=== PATIENT | female | born 1950 ===

== ENCOUNTER 2020-12-26 22:59 | Emergency (ER) | payer MEDICARE ==
[2020-12-26 23:15] VITALS: PULSE 76
[2020-12-26] MEDS ORDERED: Diphtheria,Pertussis(Acell),Tetanus Vaccine 0.5 ML Syringe IM ONE (23:34)
--- NOTE | 2020-12-27 00:19 | EDM.PDOC ---
ED HPI GENERAL MEDICAL PROBLEM - General Chief Complaint: Head Injury Stated Complaint: FALL Time Seen by Provider: 12/26/20 23:05 Source of Information: Reports: Patient History Limitations: Reports: No Limitations - History of Present Illness INITIAL COMMENTS - FREE TEXT/NARRATIVE: Patient presented to the ED because of facial injury. She went to throw her trash tonight lost her balance and fell face down. She sustained abrasions on her left forehead,cheeks-bilateral and has a left sided epistaxis. There is no headache, N/V and no LOC after the fall. Face, bilat wrists Pain Score (Numeric/FACES): 6 - Related Data Allergies Allergy/AdvReac Type Severity Reaction Status Date / Time .excedrin Allergy Other Uncoded 12/26/20 23:06 .pain medication Allergy Stomach Uncoded 12/26/20 23:06 Upset Home Meds: Home Meds Losartan/Hydrochlorothiazide [Losartan-HCTZ 100-25 MG] 1 each PO DAILY 03/06/15 [History] Metoprolol Succinate [Toprol XL] 100 mg PO DAILY 03/06/15 [History] Citalopram [Citalopram HBr] 10 mg PO BEDTIME 12/26/20 [History] Omeprazole 20 mg PO DAILY 12/26/20 [History] Rosuvastatin [Crestor] 5 mg PO BEDTIME 12/26/20 [History] Zolpidem Tartrate [Ambien] 5 mg PO BEDTIME PRN 12/26/20 [History] amLODIPine [Norvasc] 5 mg PO DAILY 12/26/20 [History] Past Medical History HEENT History: Reports: Cataract, Other (See Below) Other HEENT History: hx tinnitis, hx Meniers disease Cardiovascular History: Reports: High Cholesterol, Hypertension Gastrointestinal History: Reports: GERD Genitourinary History: Reports: UTI, Recurrent 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: Musculoskeletal History: Reports: Arthritis, Fracture Other Musculoskeletal History: hx finger L hand Neurological History: Reports: Vertigo Psychiatric History: Reports: Anxiety, Depression Endocrine/Metabolic History: Reports: Other (See Below) Other Endocrine/Metabolic History: pre-diabetes - Infectious Disease History Infectious Disease History: Reports: Chicken Pox, Measles, Mumps - Past Surgical History HEENT Surgical History: Reports: Adenoidectomy, Tonsillectomy GI Surgical History: Reports: Appendectomy, Cholecystectomy Musculoskeletal Surgical History: Reports: None Social & Family History - Family History Family Medical History: No Pertinent Family History - Tobacco Use Tobacco Use Status *Q: Former Tobacco User Years of Tobacco use: 15 Used Tobacco, but Quit: Yes Month/Year Tobacco Last Used: jul - Caffeine Use Caffeine Use: Reports: Coffee - Recreational Drug Use Recreational Drug Use: No ED ROS GENERAL - Review of Systems Review Of Systems: See Below HEENT: Reports: No Symptoms Respiratory: Reports: No Symptoms Cardiovascular: Reports: No Symptoms Endocrine: Reports: No Symptoms GI/Abdominal: Reports: No Symptoms : Reports: No Symptoms Musculoskeletal: Reports: No Symptoms Skin: Reports: No Symptoms Neurological: Reports: No Symptoms ED EXAM, HEAD INJURY - Physical Exam Exam: See Below Exam Limited By: No Limitations General Appearance: Alert, No Apparent Distress Head: Atraumatic, Normocephalic Ears: Normal External Exam, Normal Canal, Hearing Grossly Normal, Normal TMs, Hearing Loss Nose: Normal Inspection, Normal Mucousa, No Blood, Other (epistaxis-left nose) Throat/Mouth: Normal Inspection, Normal Lips, Normal Teeth, Normal Gums Neck: Non-Tender, Full Range of Motion, Normal Alignment Respiratory: No Respiratory Distress, Lungs Clear, Normal Breath Sounds, No Accessory Muscle Use, Chest Non-Tender Cardiovascular: Normal Peripheral Pulses, Regular Rate, Rhythm, No Edema GI/Abdominal Exam: Normal Bowel Sounds, Soft, Non-Tender, No Organomegaly Back Exam: Normal Inspection, Full Range of Motion Extremities: Normal Inspection, Normal Range of Motion, Non-Tender 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 As Tested, No Motor/Sensory Deficits, Alert, Normal Mood/Affect, Oriented x 3 Skin: Normal Color, Other (facial abrasions) Course - Vital Signs Text/Narrative:: Tdap Facial CT-negative except for nasal fracture Last Recorded V/S: Last Vital Signs Temp 36.5 C 12/26/20 22:59 Pulse 76 12/27/20 01:00 Resp 18 12/27/20 01:00 BP 130/74 12/27/20 01:00 Pulse Ox 96 12/27/20 01:00 - Orders/Labs/Meds Orders: Active Orders 24 hr Category Date Time Status Max Facial Sinus wo Cont [CT] Stat Exams 12/26/20 23:32 Taken Meds: Medications Discontinued Medications Generic Name Dose Route Start Last Admin Trade Name Yony PRN Reason Stop Dose Admin Acetaminophen 1,000 mg 12/27/20 00:55 12/27/20 01:05 Acetaminophen 500 Mg Tab PO 12/27/20 00:56 1,000 mg NOW STA Administration Diphtheria/Tetanus/Acell Pertussis 0.5 ml 12/26/20 23:34 12/27/20 01:04 Diphtheria,Pertussis(Acell),Tetanus Vaccine 0.5 Ml Syringe IM 12/26/20 23:35 0.5 ml .ONCE ONE Administration Departure - Departure Time of Disposition: 01:10 Disposition: Home, Self-Care 01 Condition: Good Clinical Impression: Nasal bone fracture - Discharge Information Instructions: Nasal Fracture, [id number], Facial or Scalp Contusion, [id number], Abrasion, [id number], VIS, Tetanus, Diphtheria, and Pertussis (Tdap) - [facility]– [place] (10/06/2019) Referrals: Alaina Garcia [employer] [Primary Care Provider] - Forms: ED Department Discharge Additional Instructions: Please read discharge instructions on facial injury and nasal fracture Take ibuprofen 600 mg with tylenol 500 mg every 4-6 hours as needed for pain Apply and antibiotic ointment on your abrasion twice daily for 1 week Follow up with ENT in a week Sepsis Event Note (ED) - Evaluation Sepsis Screening Result: No Definite Risk - Focused Exam Vital Signs: Vital Signs Pulse Resp BP Pulse Ox 12/27/20 01:00 76 18 130/74 96 - My Orders Last 24 Hours: My Active Orders 12/26/20 23:32 Max Facial Sinus wo Cont [CT] Stat - Assessment/Plan Last 24 Hours: My Active Orders 12/26/20 23:32 Max Facial Sinus wo Cont [CT] Stat
[2020-12-27] MEDS ORDERED: Acetaminophen 500 MG Tab PO STA (00:55)
[2020-12-27 01:31] VITALS: BP 130/74
== END 2020-12-27 01:17 | disposition home or self-care (01) ==
LOC: FB.ED 22:59
DX: S02.2XXA Fracture of nasal bones, initial encounter for closed fracture (principal); E78.00 Pure hypercholesterolemia, unspecified; I10 Essential (primary) hypertension; K21.9 Gastro-esophageal reflux disease without esophagitis; Z87.891 Personal history of nicotine dependence; Z79.899 Other long term (current) drug therapy; Z23 Encounter for immunization; Z88.6 Allergy status to analgesic agent; W18.39XA Other fall on same level, initial encounter
CPT/HCPCS: 70486; 90471; 90715; 99282; 99284-25; A9270-GY